=== PATIENT | female | born 2000 | race Caucasian/White ===

== ENCOUNTER 2018-08-28 21:39 | Emergency (ER) | END 2018-08-28 22:22 | disposition left against medical advice (07) | LOC: ER 21:39 | DX: Z53.21 Procedure and treatment not carried out due to patient leaving prior to being seen by health care provider (principal) ==

== ENCOUNTER 2018-11-30 01:05 | Emergency (ER) | payer OTHER ==
[2018-11-30 02:58] VITALS: BP 118/66
[2018-11-30] MEDS ORDERED: TRAMADOL HCL 50 MG TABLET PO ONE (03:06)
--- NOTE | 2018-11-30 03:11 | ER Document Report ---
ED Oral Problem - General Chief Complaint: Toothache Stated Complaint: TOOTHPAIN Time Seen by Provider: 11/30/18 03:01 Mode of Arrival: Ambulatory Information source: Patient TRAVEL OUTSIDE OF THE [place] IN LAST 30 DAYS: No - HPI Patient complains to provider of: Toothache Notes: Patient here with complaints of left upper dental pain for the last day. She has intermittent chronic pain in this tooth, she normally takes ibuprofen which helps with the pain. Tonight ibuprofen did not seem to help the pain she was having difficulty sleeping. No fevers. She states that she has had a strange taste in her mouth and thinks that there may be some drainage from the tooth. No fevers. No difficulty breathing or swallowing. No nausea, vomiting, diarrhea. No swelling. No chest pain or shortness of breath. Pain is constant, moderate, nothing makes it better or worse. She does not currently have a dentist. She denies any other complaints at this time. - Related Data Allergies/Adverse Reactions: latex Allergy (Verified 11/30/18 02:58) Past Medical History - Social History Smoking Status: Never Smoker Frequency of alcohol use: None Drug Abuse: None Family History: Reviewed & Not Pertinent Patient has suicidal ideation: No Patient has homicidal ideation: No Renal/ Medical History: Denies: Hx Peritoneal Dialysis Past Surgical History: Reports: Hx Oral Surgery, Hx Tonsillectomy Review of Systems - Review of Systems -: Yes All other systems reviewed and negative Physical Exam - Vital signs Vitals: Temp Pulse Resp BP Pulse Ox 97.9 F 73 16 114/77 99 11/30/18 01:11 11/30/18 01:11 11/30/18 01:11 11/30/18 01:11 11/30/18 01:11 - Notes Notes: GENERAL: alert, cooperative, nontoxic, no distress. HEAD: normocephalic, atraumatic EYES: conjunctiva pink without discharge, no external redness or swelling. EARS: no external swelling, no external redness, no mastoid redness, swelling, tenderness. Ear canals are clear without swelling or drainage. TMs pearly wren, no redness, no bulging, normal landmarks, no perforation. NOSE: atraumatic, no external swelling. clear rhinorrhea noted. MOUTH/THROAT: mucous membranes moist and pink, posterior pharynx without erythema, swelling, exudate. No trismus or drooling. Widespread dental decay. Over the left upper first molar. Tenderness to this area. There is no gum swelling or drainage identified. No facial swelling. No sublingual swelling or induration. NECK: soft, supple, full range of motion, no meningismus. CHEST: no distress, lungs clear and equal throughout. No wheezing, rales, rhonchi. CARDIAC: regular rate and rhythm, no murmur, normal capillary refill, normal pulses. No peripheral edema noted. BACK: full range of motion, no CVA tenderness. EXTREMITIES: full range of motion of all extremities. No redness, no swelling. NEURO: alert and oriented A&O3, no focal deficits, full range of motion of all extremities. PYSCH: appropriate mood, affect. Patient is cooperative. SKIN: pink, warm, dry, no rash. Course - Re-evaluation Re-evalutation: 11/30/18 03:08 Patient is nontoxic-appearing with stable vitals. Patient here with complaints of dental pain. Patient has widespread dental decay and has a cap over her left upper first molar. This is the tooth is having some tenderness. No drainable abscess noted. No sign of Juan's angina no other significant abnormalities identified. Patient will be given a dose of tramadol here in the emergency department to help control her pain for tonight. She will be discharged home with a prescription for Naprosyn and amoxicillin. Follow-up with her dentist at the next available appointment. Follow-up sooner for worsening pain, fever, swelling, difficulty breathing or swelling, persistent vomiting, or for any further concerns. The patient's emergency department workup and current diagnosis were explained to the patient and or family. Follow-up instructions were provided. Medications if prescribed were discussed. Instructions for when to return to the emergency department including specific worrisome symptoms were discussed with the patient and/or family. - Vital Signs Vital signs: Temp Pulse Resp BP Pulse Ox 97.9 F 73 17 118/66 100 11/30/18 02:57 11/30/18 02:57 11/30/18 02:57 11/30/18 02:57 11/30/18 02:57 Discharge - Discharge Clinical Impression: Pain due to dental caries Condition: Stable Disposition: HOME, SELF-CARE Instructions: [facility], Toothache ([facility]) Additional Instructions: Take medication as prescribed. Drink plenty fluids. Follow-up with a dentist at the next available appointment. Follow-up sooner for worsening pain, fever, numbness, tingling, weakness, persistent vomiting, swelling, or for any further concerns. Prescriptions: Amoxicillin Trihydrate [Amoxil 400 mg/5 mL Suspension] 10 ml PO BID #1 bottle Naproxen [Naprosyn] 500 mg PO BID #20 tablet Referrals: [facility] [Provider Group] - Follow up as needed DENTISTRY [Provider Group] - Follow up as needed [facility] [Provider Group] - Follow up as needed
== END 2018-11-30 03:21 | disposition home or self-care (01) ==
LOC: ER 01:05
DX: K02.9 Dental caries, unspecified (principal); K08.89 Other specified disorders of teeth and supporting structures; Z91.040 Latex allergy status
CPT/HCPCS: 99282

== ENCOUNTER 2020-05-10 21:30 | Emergency (ER) | payer OTHER ==
[2020-05-10 21:41] VITALS: BP 127/66
== END 2020-05-10 22:30 | disposition left against medical advice (07) ==
LOC: ER 21:30
DX: Z53.21 Procedure and treatment not carried out due to patient leaving prior to being seen by health care provider (principal)